=== PATIENT | male | born 1960 | race Caucasian/White ===

== ENCOUNTER → 2021-04-25 | Outpatient (CLI) | payer BC ==
[~2021-04-25] MED LIST: IBUPROFEN800 MG PO
== END ==
LOC: EXRD 14:30
DX: R13.10 Dysphagia, unspecified (principal); E07.89 Other specified disorders of thyroid
CPT/HCPCS: 76536

== ENCOUNTER → 2021-05-09 | Outpatient (CLI) | payer BC | LOC: US 09:03 | DX: E04.1 Nontoxic single thyroid nodule (principal) ==